=== PATIENT | female | born 1995 | race Caucasian/White ===

== ENCOUNTER 2022-09-29 06:55 | Inpatient (IN) | payer OTHER, MEDICAID ==
[2022-09-29] MEDS ORDERED: Sodium Chloride 0.9% 10 ML Syringe FLUSH PRN (07:03)
[2022-09-29] MEDS ORDERED: Nalbuphine 10 MG/0.5 ML Syringe IVPUSH PRN (07:03)
[2022-09-29] MEDS ORDERED: Ondansetron 4 MG/2 ML SDV IVPUSH PRN (07:09)
[2022-09-29] MEDS ORDERED: Oxytocin/Lactated Ringers 10 UNIT/1,000 ML BAG IV SCH (07:15)
[2022-09-29] MEDS: Lactated Ringers 1,000 ML IV SCH ×3 (08:06→20:21)
[2022-09-29] MEDS: Oxytocin/Lactated Ringers 10 UNIT/1,000 ML BAG IV SCH ×2 (08:06→22:23)
[2022-09-29] MEDS: Sodium Chloride 0.9% 10 ML Syringe FLUSH SCH (11:27)
[2022-09-29] MEDS ORDERED: diphenhydrAMINE 50 MG/ML SDV IVPUSH PRN (15:10)
[2022-09-29] MEDS ORDERED: fentaNYL 100 MCG/2 ML SDV EPIDUR PRN (15:10)
[2022-09-29] MEDS ORDERED: ePHEDrine 50 MG/ML SDV IVPUSH PRN (15:10)
[2022-09-29] MEDS: Bupivacaine/fentaNYL/NS 100 ML Bag EPIDUR PRN ×2 (15:23→19:48)
[2022-09-29] MEDS ORDERED: Acetaminophen 325 MG Tab PO ONE (16:14)
[2022-09-29] MEDS ORDERED: Ropivacaine 0.2% PF 2 MG/ML 20 ML SDV ONE (18:00)
[2022-09-30] MEDS ORDERED: Benzocaine/Menthol 20%-0.5% Spray 78 GM Cannister TOP PRN (00:46)
[2022-09-30] MEDS ORDERED: Acetaminophen 325 MG Tab PO PRN (00:46)
[2022-09-30] MEDS ORDERED: Witch Hazel Medicated Pads 40/Jar TOP PRN (00:46)
[2022-09-30] MEDS: Ibuprofen 600 MG Tab PO PRN ×3 (01:35→17:57)
[2022-09-30] MEDS: Sodium Chloride 0.9% 10 ML Syringe FLUSH SCH (07:22)
[2022-09-30] MEDS: Docusate Sodium 100 MG Cap PO PRN (14:38)
[2022-10-01] MEDS: Docusate Sodium 100 MG Cap PO PRN ×2 (03:01→15:20)
[2022-10-01] MEDS ORDERED: Polyethylene Glycol 3350 Powder 17 GM Packet PO ONE (07:51)
[2022-10-01] MEDS: Ibuprofen 600 MG Tab PO PRN ×2 (08:07→15:20)
[2022-10-01] MEDS ORDERED: Measles, Mumps & Rubella Vaccine 0.5 ML SDV SUBCUT ONE ×2 (09:00→11:00)
== END 2022-10-01 18:00 | disposition home or self-care (01) | DRG 807 ==
LOC: JD.OBCHECK 06:55 → JD.OB 07:01
PROVIDERS: ADMIT Obstetrics & Gynecology; ATTEND Obstetrics & Gynecology
PROC: 10D07Z6 Extraction of Products of Conception, Vacuum, Via Natural or Artificial Opening (ICD-10-PCS; principal; 2022-09-29)
PROC: 0HQ9XZZ Repair Perineum Skin, External Approach (ICD-10-PCS; 2022-09-29)
PROC: 10907ZC Drainage of Amniotic Fluid, Therapeutic from Products of Conception, Via Natural or Artificial Opening (ICD-10-PCS; 2022-09-29)
PROC: 3E0R3BZ Introduction of Anesthetic Agent into Spinal Canal, Percutaneous Approach (ICD-10-PCS; 2022-09-29)
PROC: 00HU33Z Insertion of Infusion Device into Spinal Canal, Percutaneous Approach (ICD-10-PCS; 2022-09-29)
DX: O48.0 Post-term pregnancy (principal); Z37.0 Single live birth; Z3A.40 40 weeks gestation of pregnancy; O70.0 First degree perineal laceration during delivery; O76 Abnormality in fetal heart rate and rhythm complicating labor and delivery; O99.344 Other mental disorders complicating childbirth; F41.9 Anxiety disorder, unspecified; F32.A Depression, unspecified; O77.0 Labor and delivery complicated by meconium in amniotic fluid
CPT/HCPCS: 36415; 51701; 51702; 59025; 59409; 85027; 85461; 86592; 86850; 86900; 86901; 90471; 90707; A9270-GY; J2300; J2405; J2590; J2790; J2795; J3010; J3490; J7120

== ENCOUNTER 2022-10-08 16:52 | Emergency (ER) | payer OTHER, MEDICAID ==
[2022-10-08] MEDS ORDERED: Ketorolac 30 MG/ML SDV IM ONE (17:41)
[2022-10-08] MEDS ORDERED: Rivaroxaban 15 MG Tab PO ONE (20:01)
== END 2022-10-08 20:35 | disposition home or self-care (01) ==
LOC: JD.ED 16:52
DX: I82.441 Acute embolism and thrombosis of right tibial vein (principal); Z86.16 Personal history of COVID-19; Z79.899 Other long term (current) drug therapy; Z91.030 Bee allergy status; Z79.01 Long term (current) use of anticoagulants
CPT/HCPCS: 93971; 96372; 99283; A9270; J1885

== ENCOUNTER 2022-12-13 01:56 | Emergency (ER) | payer OTHER, MEDICAID ==
[2022-12-13] MEDS ORDERED: Ondansetron 4 MG/2 ML SDV IVPUSH ONE (02:16)
[2022-12-13] MEDS ORDERED: Lactated Ringers 1,000 ML IV SCH (02:30)
[2022-12-13] MEDS ORDERED: Aluminum Hydroxide/Magnesium Hydroxide/Simethicone Susp 30 ML Cup PO ONE (03:44)
[2022-12-13] MEDS ORDERED: Alum Hydrox/Mag Hydrox/Simeth 30 ML, Lidocaine 2% 15 ML PO ONE ×2 (03:44)
[2022-12-13] MEDS ORDERED: Lidocaine 2% Viscous Solution 15 ML UD PO ONE (03:45)
== END 2022-12-13 05:21 | disposition home or self-care (01) ==
LOC: JD.ED 01:56
DX: R11.2 Nausea with vomiting, unspecified (principal); D50.9 Iron deficiency anemia, unspecified; Z91.030 Bee allergy status; Z86.16 Personal history of COVID-19; Z79.01 Long term (current) use of anticoagulants
CPT/HCPCS: 36415; 80053; 81003; 81025; 85025; 93005; 96361; 96374; 99285; A9270; J2405; J7120; 93010; 99284

== ENCOUNTER 2023-08-06 19:03 | Emergency (ER) | payer OTHER, MEDICAID ==
[2023-08-06] MEDS ORDERED: Sodium Chloride 0.9% 1,000 ML IV STA (19:24)
[2023-08-06] MEDS ORDERED: Ondansetron 4 MG/2 ML SDV IVPUSH ONE (19:24)
[2023-08-06] MEDS ORDERED: Sodium Chloride 0.9% 10 ML Syringe FLUSH PRN (19:24)
[2023-08-06] MEDS ORDERED: HYDROmorphone 0.5 MG/0.5 ML Syringe IVPUSH ONE (19:25)
[2023-08-06 19:29] LABS: BASOPHILS ABSOLUTE AUTO 0.1 K/mm3 (0.0-0.2); BASOPHILS PERCENT AUTO 0.3 % (0.0-1.0); EOSINOPHILS ABSOLUTE AUTO 0.1 K/mm3 (0.0-0.4); EOSINOPHILS PERCENT AUTO 0.7 % (0.0-6.0); HEMATOCRIT 48.2 % (37.0-47.0); HEMOGLOBIN 16.3 gm/dl (12.0-16.0); IMMATURE GRAN ABSOLUTE AUTO 0.05 K/mm3 (0.00-0.05); IMMATURE GRAN PERCENT AUTO 0.3 % (0.0-0.4); LYMPHOCYTES ABSOLUTE AUTO 1.4 K/mm3 (1.0-4.8); LYMPHOCYTES PERCENT AUTO 9.6 % (24.0-44.0); MEAN CORPUSCULAR HEMOGLOBIN 29.1 pg (28.0-32.0); MEAN CORPUSCULAR HGB CONC 33.8 g/dl (32.0-36.0); MEAN CORPUSCULAR VOLUME 86.1 fl (83.0-99.0); MEAN PLATELET VOLUME 9.6 fl (9.4-12.3); MONOCYTES ABSOLUTE AUTO 0.7 K/mm3 (0.0-0.8); NEUTROPHILS ABSOLUTE AUTO 12.2 K/mm3 (1.8-7.7); NEUTROPHILS PERCENT AUTO 84.1 % (41.0-71.0); PLATELET COUNT,PLT 270 K/mm3 (150-400); WHITE BLOOD CELL COUNT,WBC 14.49 K/mm3 (3.9-11.3)
[2023-08-06 19:50] LABS: A/G RATIO 1.2 (1-2); ALBUMIN 4.4 g/dl (3.4-5.0); ANION GAP 20.9 (5-15); BILIRUBIN TOTAL 1.1 mg/dL (0.2-1.0); BUN/CREATININE RATIO 21.1 (14-18); CALCIUM 9.3 mg/dL (8.5-10.1); CREATININE 0.9 mg/dL (0.55-1.02); EST CRCL DRUG DOSING (CG) 84.49 mL/min; POTASSIUM,K 3.9 mEq/L (3.5-5.1)
[2023-08-06 20:24] LABS: APPEARANCE,URINE CLEAR (Clear); BILIRUBIN,URINE 1+ (Negative); COLOR,URINE YELLOW (Yellow); GLUCOSE,URINE NEGATIVE (Negative); KETONES,URINE TRACE (Negative); LEUKOCYTE ESTERASE,URINE NEGATIVE (Negative); NITRITE,URINE NEGATIVE (Negative); OCCULT BLOOD,URINE NEGATIVE (Negative); PH,URINE 5.5 (5.0-8.0); PROTEIN,URINE 1+ (Negative); UROBILINOGEN,URINE 0.2 (0.2-1.0)
[2023-08-06] MEDS ORDERED: Lactated Ringers 1,000 ML IV ONE (20:28)
[2023-08-06] MEDS ORDERED: Sodium Chloride 0.9% 10 ML Syringe FLUSH ONE (20:32)
[2023-08-06] MEDS ORDERED: Iopamidol 612 MG/ML 100 ML Bottle IVPUSH ONE (20:32)
[2023-08-06 20:34] LABS: BACTERIA,URINE MODERATE /hpf (FEW); MUCUS,URINE MANY /hpf (FEW); RBC,URINE 0-5 /hpf (0-5); SQUAMOUS EPITHELIAL CELLS,UR 0-5 /hpf (0-5); WBC,URINE 0-5 /hpf (0-5)
== END 2023-08-06 22:00 | disposition home or self-care (01) ==
LOC: JD.ED 19:03
DX: A08.4 Viral intestinal infection, unspecified (principal); K44.9 Diaphragmatic hernia without obstruction or gangrene; K43.9 Ventral hernia without obstruction or gangrene; R91.1 Solitary pulmonary nodule; Z86.16 Personal history of COVID-19; Z91.030 Bee allergy status; Z79.899 Other long term (current) drug therapy
CPT/HCPCS: 36415; 74177; 80053; 81001; 83690; 84703; 85025; 96361; 96374; 96375; 99284; J1170; J2405; J3490; J7030; J7120; Q9967